=== PATIENT | female | born 1970 | race Hispanic/Latino ===

== ENCOUNTER → 2017-02-28 | Outpatient (CLI) | payer MEDICARE ==
[~2017-02-28] MED LIST: BUPR-47 PO; CHOL500050 PO; DEXT1CAP3 PO; FIBER THERAPY PO; HYDR100C2 PO; LISI40TA4 PO; METF500T6 PO; OXCA600T10 PO; OXYB5TAB10 PO; THYR30TA2 PO; ZIPR80CA21 PO
== END | disposition home or self-care (01) ==
LOC: SHCH 08:55
PROVIDERS: ATTEND Internal Medicine Cardiovascular Disease
DX: R07.9 Chest pain, unspecified (principal); R06.00 Dyspnea, unspecified
CPT/HCPCS: 93306

== ENCOUNTER → 2017-04-10 | Outpatient (CLI) | payer MEDICARE ==
[~2017-04-10] MED LIST changes: +REGADENOSON 0.4 MG/5 ML PF SYG IVP SCH
== END | disposition home or self-care (01) ==
LOC: SHCH 14:13
PROVIDERS: ATTEND Internal Medicine Cardiovascular Disease
DX: R07.9 Chest pain, unspecified (principal); R06.00 Dyspnea, unspecified
CPT/HCPCS: 78452; 93017; 96374; A9500 ×2; J2785

== ENCOUNTER 2018-07-26 08:50 | Emergency (ER) | payer MEDICARE ==
[~2018-07-26 08:50] MED LIST changes: +METF-444 PO; -METF500T6 PO; -OXCA600T10 PO; +OXCA600T18 PO; -REGADENOSON 0.4 MG/5 ML PF SYG IVP SCH
[2018-07-26 09:23] LABS: HCG,QUAL RESULT NEGATIVE (NEGATIVE)
[2018-07-26 09:24] LABS: APPEARANCE,URINE Clear (CLEAR); BILIRUBIN,URINE Negative (NEGATIVE); COLOR,URINE Yellow (YELLOW); GLUCOSE, URINE (UA) Negative (NEGATIVE); KETONES,URINE Negative (NEGATIVE); LEUKOCYTE ESTERASE ,URINE Small (NEGATIVE); NITRATE,URINE Negative (NEGATIVE); OCCULT BLOOD,URINE Negative (NEGATIVE); PROTEIN,URINE Negative (NEGATIVE); UROBILINOGEN,URINE 0.2 mg/dL (0.2-1.0)
[2018-07-26] MEDS ORDERED: SODIUM CHLORIDE 0.9% 1000ML 1,000 ML IV ONE (09:28)
[2018-07-26] MEDS ORDERED: KETOROLAC TROMETHAMINE 30MG/ML ONE (09:28)
[2018-07-26 09:32] LABS: BASOPHILS % (AUTO) 0.7 % (0.0-5.0); EOSINOPHILS % (AUTO) 1.6 % (0.0-8.0); HEMATOCRIT 40.2 % (36-48); LYMPHOCYTES % (AUTO) 10.5 % (21.0-51.0); MEAN CORPUSCULAR HEMOGLOBIN 28.6 pg (27.0-33.0); MEAN CORPUSCULAR HGB CONC 33.1 g/dL (32.0-36.0); MEAN CORPUSCULAR VOLUME 86.4 fL (79-99); MONOCYTES % (AUTO) 6.5 % (3.0-13.0); NEUTROPHILS % (AUTO) 80.7 % (40.0-77.0); PLATELET COUNT (AUTO) 316 K/uL (130-400); RED BLOOD CELL COUNT(AUTO) 4.65 MIL/uL (4.00-5.50); RED CELL DISTRIBUTION WIDTH 18.3 % (11.0-15.5); WHITE BLOOD COUNT (AUTO) 11.8 K/uL (4.8-10.8)
[2018-07-26 09:38] LABS: CREATININE 0.7 mg/dL (0.5-1.5); POTASSIUM 4.1 mmol/L (3.5-5.1)
[2018-07-26 09:42] LABS: BACTERIA,URINE Rare /HPF (None Seen); RBC,URINE 0-1 /HPF (0-1); SQUAMOUS EPITHELIAL CELL,UR Few /HPF (0-2)
[2018-07-26 09:47] LABS: ALBUMIN 3.7 g/dL (3.5-5.0); BILIRUBIN,TOTAL 0.3 mg/dL (0.2-1.0); TOTAL PROTEIN, SERUM 7.4 g/dL (6.0-8.3)
[2018-07-26] MEDS ORDERED: IOHEXOL-350 75 ML VIAL IV ONE (10:41)
== END 2018-07-26 11:36 | disposition home or self-care (01) ==
LOC: EDH 08:50
DX: N30.00 Acute cystitis without hematuria (principal); E11.9 Type 2 diabetes mellitus without complications; F31.9 Bipolar disorder, unspecified; F41.9 Anxiety disorder, unspecified; Z98.51 Tubal ligation status; Z79.899 Other long term (current) drug therapy; Z79.84 Long term (current) use of oral hypoglycemic drugs
CPT/HCPCS: 36415; 74177; 80053; 81001; 81025; 85025; 96374; 99285; J1885; J7030; Q9967

== ENCOUNTER 2018-09-17 16:30 | Observation (INO) | payer MEDICARE ==
[~2018-09-17] VITALS: Ht 157.5 cm; Wt 94.9 kg
[2018-09-17] MEDS ORDERED: ONDANSETRON HCL 4 MG/2 ML VIAL ONE (17:21)
[2018-09-17] MEDS ORDERED: TETANUS/DIPHTHERIA TOXOID [ADULT] 0.5 ML VIAL IM ONE ×2 (17:22→18:53)
[2018-09-17] MEDS ORDERED: SODIUM CHLORIDE 0.9% 1000ML 1,000 ML IV ONE ×2 (17:22→21:11)
[2018-09-17] MEDS ORDERED: HYDROMORPHONE 1 MG/1 ML AMP ONE (17:22)
[2018-09-17 17:27] LABS: APPEARANCE,URINE SL CLOUDY (CLEAR); BILIRUBIN,URINE MODERATE (NEGATIVE); COLOR,URINE YELLOW (YELLOW); GLUCOSE, URINE (UA) NEGATIVE (NEGATIVE); KETONES,URINE 15 mg/dL (NEGATIVE); LEUKOCYTE ESTERASE ,URINE TRACE (NEGATIVE); NITRATE,URINE NEGATIVE (NEGATIVE); OCCULT BLOOD,URINE NEGATIVE (NEGATIVE); PROTEIN,URINE 100 mg/dL (NEGATIVE)
[2018-09-17 17:29] LABS: BASOPHILS % (AUTO) 0.3 % (0.0-5.0); HEMATOCRIT 42.4 % (36-48); LYMPHOCYTES % (AUTO) 11.4 % (21.0-51.0); MEAN CORPUSCULAR HEMOGLOBIN 30.6 pg (27.0-33.0); MEAN CORPUSCULAR HGB CONC 34.1 g/dL (32.0-36.0); MEAN CORPUSCULAR VOLUME 89.8 fL (79-99); MONOCYTES % (AUTO) 8.9 % (3.0-13.0); NEUTROPHILS % (AUTO) 79.4 % (40.0-77.0); PLATELET COUNT (AUTO) 344 K/uL (130-400); RED BLOOD CELL COUNT(AUTO) 4.72 MIL/uL (4.00-5.50); RED CELL DISTRIBUTION WIDTH 14.1 % (11.0-15.5)
[2018-09-17] MEDS ORDERED: IOHEXOL-350 75 ML VIAL IV ONE (17:31)
[2018-09-17 17:35] LABS: AMPHET/METH SCREEN,URINE NEGATIVE (NEGATIVE); BARBITURATE SCREEN, URINE NEGATIVE (NEGATIVE); BENZODIAZEPINES SCREEN,URINE NEGATIVE (NEGATIVE); CANNABINOID SCREEN,URINE POSITIVE (NEGATIVE); COCAINE SCREEN,URINE POSITIVE (NEGATIVE); OPIATE SCREEN,URINE NEGATIVE (NEGATIVE); PHENCYCLIDINE SCREEN,URINE NEGATIVE (NEGATIVE)
[2018-09-17 17:42] LABS: BACTERIA,URINE Few /HPF (None Seen); MUCUS,URINE Rare LPF (None Seen); RBC,URINE 0-1 /HPF (0-1); SQUAMOUS EPITHELIAL CELL,UR Few /HPF (0-2)
[2018-09-17 17:47] LABS: CARBON DIOXIDE 19 mmol/L (21-32); CHLORIDE 103 mmol/L (101-111); CREATININE 0.9 mg/dL (0.5-1.5); GLOMERULAR FILTR. RATE CALC 71 mL/min (>60); GLUCOSE,RANDOM 116 mg/dL (70-105); POTASSIUM 3.2 mmol/L (3.5-5.1); SODIUM SERUM 142 mmol/L (136-145); UREA NITROGEN, BLOOD 11 mg/dL (7-18)
[2018-09-17 17:48] LABS: INR 0.97 (0.85-1.15); PARTIAL THROMBOPLASTIN TIME 27.1 SEC (26.3-35.5); PROTHROMBIN TIME 10.2 SEC (9.6-11.6)
[2018-09-17 17:51] LABS: ALANINE AMINOTRANSFERASE 29 U/L (12-78); ALBUMIN 3.9 g/dL (3.5-5.0); ASPARTATE AMINOTRANSFERASE 23 U/L (10-37); BILIRUBIN,TOTAL 0.6 mg/dL (0.2-1.0); TOTAL PROTEIN, SERUM 7.6 g/dL (6.0-8.3)
[2018-09-17 17:52] LABS: ALCOHOL, BLOOD < 3 mg/dL (0-10)
[2018-09-17] MEDS ORDERED: POTASSIUM CHLORIDE 20 MEQ ERTAB PO ONE (18:46)
[2018-09-17] MEDS ORDERED: CEFTRIAXONE SODIUM 1 GM ONE (18:47)
[2018-09-17] MEDS ORDERED: LEVOFLOXACIN 500 MG/D5W 100 ML 100 ML ONE (19:46)
[2018-09-17] MEDS ORDERED: ACETAMINOPHEN 325 MG TAB ONE (23:11)
[2018-09-18 01:45] VITALS: BP 113/68
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
[2018-09-18] MEDS ORDERED: CHOL500051 PO (02:08)
[2018-09-18] MEDS ORDERED: LISI40TA4 PO (02:08)
[2018-09-18] MEDS ORDERED: PREG100C PO (02:08)
[2018-09-18] MEDS ORDERED: FLUO20CA30 PO (02:08)
[2018-09-18] MEDS ORDERED: METF-444 PO (02:08)
[2018-09-18] MEDS ORDERED: ATOR10 PO (02:08)
[2018-09-18] MEDS ORDERED: ZIPR40CA2 PO (02:08)
[2018-09-18] MEDS ORDERED: TRAM50TA4 PO (02:08)
[2018-09-18] MEDS ORDERED: FERR-82 PO (02:08)
[2018-09-18] MEDS ORDERED: LORA10CA9 PO (02:08)
[2018-09-18] MEDS ORDERED: LEVO50 PO (02:08)
[2018-09-18] MEDS ORDERED: TRAZ-185 PO (02:08)
[2018-09-18] MEDS ORDERED: DOXE75CA3 PO (02:08)
[2018-09-18] MEDS ORDERED: DIVA500T69 PO (02:08)
[2018-09-18] MEDS ORDERED: METF500S7 PO (02:08)
[2018-09-18 03:51] VITALS: BP 113/64
[2018-09-18 05:05] LABS: HEMATOCRIT 37.2 % (36-48); MEAN CORPUSCULAR HEMOGLOBIN 30.8 pg (27.0-33.0); MEAN CORPUSCULAR HGB CONC 33.9 g/dL (32.0-36.0); MEAN CORPUSCULAR VOLUME 90.9 fL (79-99); NUCLEATED RED BLOOD CELLS 0.1 % (0.0-0.19); PLATELET COUNT (AUTO) 299 K/uL (130-400); RED BLOOD CELL COUNT(AUTO) 4.09 MIL/uL (4.00-5.50); RED CELL DISTRIBUTION WIDTH 14.7 % (11.0-15.5); WHITE BLOOD COUNT (AUTO) 7.6 K/uL (4.8-10.8)
[2018-09-18 05:21] LABS: CREATININE 0.7 mg/dL (0.5-1.5); POTASSIUM 3.1 mmol/L (3.5-5.1)
[2018-09-18] MEDS ORDERED: SODIUM CHLORIDE 0.9% 1000ML 1,000 ML IV SCH ×2 (06:30)
[2018-09-18] MEDS ORDERED: ACETAMINOPHEN 325 MG TAB PO PRN ×2 (06:30)
[2018-09-18 07:00] VITALS: BP 119/63
[2018-09-18 11:00] VITALS: BP 126/78
[2018-09-18] MEDS ORDERED: TRAMADOL HCL 50 MG TABLET PO PRN (11:00)
[2018-09-18] MEDS ORDERED: LORAZEPAM 0.5 MG TABLET PO SCH (11:15)
[2018-09-18] MEDS ORDERED: PREGABALIN 100 MG CAPSULE PO SCH (14:00)
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
[2018-09-18] MEDS ORDERED: NITR100C PO (15:46)
[2018-09-18 16:00] VITALS: BP 111/59
[2018-09-18] MEDS ORDERED: CEFTRIAXONE SODIUM 1 GM IVP SCH (18:00)
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
[2018-09-18] MEDS ORDERED: ZIPRASIDONE HCL 20 MG CAPSULE PO SCH (21:00)
[2018-09-18] MEDS ORDERED: TRAZODONE HCL 50 MG TAB PO SCH (21:00)
[2018-09-18] MEDS ORDERED: FERROUS SULFATE 325 MG TABLET.DR PO SCH (21:00)
[2018-09-18] MEDS ORDERED: DOXEPIN HCL 25 MG CAP PO SCH (21:00)
[2018-09-18] MEDS ORDERED: DIVALPROEX SODIUM 250 MG TABLET.DR PO SCH (21:00)
[2018-09-18] MEDS ORDERED: METFORMIN HCL 500 MG TABLET PO SCH (21:00)
[2018-09-18] MEDS ORDERED: ATORVASTATIN CALCIUM 10 MG TABLET PO SCH (21:00)
[2018-09-19] MEDS ORDERED: LEVOTHYROXINE 50 MCG TABLET PO SCH (07:30)
[2018-09-19] MEDS ORDERED: LORATADINE 10 MG TABLET PO SCH (09:00)
[2018-09-19] MEDS ORDERED: FLUOXETINE HCL 20 MG CAPSULE PO SCH (09:00)
[2018-09-19] MEDS ORDERED: LISINOPRIL 40 MG TABLET PO SCH (09:00)
[2018-09-25] MEDS ORDERED: **HM** VIT D3 5000 UNITS PO SCH (09:00)
== END 2018-09-18 18:45 | disposition home or self-care (01) ==
LOC: EDH 16:30 → EDHIP 18:46 → 3AH 09-18 01:53
PROVIDERS: ADMIT Internal Medicine; ATTEND Internal Medicine
DX: N39.0 Urinary tract infection, site not specified (principal); E03.9 Hypothyroidism, unspecified; E66.9 Obesity, unspecified; I10 Essential (primary) hypertension; F41.9 Anxiety disorder, unspecified; F31.9 Bipolar disorder, unspecified; T14.8XXA Other injury of unspecified body region, initial encounter; Y08.89XA Assault by other specified means, initial encounter; Y93.89 Activity, other specified; Y92.89 Other specified places as the place of occurrence of the external cause; Y99.8 Other external cause status; E11.9 Type 2 diabetes mellitus without complications; Z79.899 Other long term (current) drug therapy
CPT/HCPCS: 36415 ×2; 70450; 71045; 71260; 72125; 74160; 80048; 80053; 80305; 81001; 83605; 84439; 84443; 85025; 85027; 85610; 85730; 87040 ×2; 87088; 90471; 90714; 93005; 99284; G0378 ×24; G0480; J0696; J1170; J1956; J2405; J7030 ×2; Q9967

== ENCOUNTER → 2020-10-28 | Outpatient (CLI) | payer MEDICARE ==
[~2020-10-28] MED LIST changes: +ATOR10 PO; -BUPR-47 PO; -CHOL500050 PO; +CHOL500051 PO; -DEXT1CAP3 PO; +DIVA500T69 PO; +DOXE75CA3 PO; +FERR-82 PO; -FIBER THERAPY PO; +FLUO20CA30 PO; -HYDR100C2 PO; +IOHEXOL-350 50ML VIAL IV ONE; +LEVO50 PO; -LISI40TA4 PO; +LISI40TA9 PO; +LORA10CA9 PO; +NITR100C PO; -OXCA600T18 PO; -OXYB5TAB10 PO; +PREG100C PO; -THYR30TA2 PO; +TRAM50TA4 PO; +TRAZ-185 PO; +ZIPR40CA2 PO; -ZIPR80CA21 PO
== END | disposition home or self-care (01) ==
LOC: RAH 07:30
PROVIDERS: ATTEND Internal Medicine Gastroenterology
DX: K44.9 Diaphragmatic hernia without obstruction or gangrene (principal); K42.9 Umbilical hernia without obstruction or gangrene; N20.0 Calculus of kidney; N28.1 Cyst of kidney, acquired; N32.89 Other specified disorders of bladder; Z90.49 Acquired absence of other specified parts of digestive tract
CPT/HCPCS: 74178; Q9967

== ENCOUNTER 2020-12-08 05:30 | Day surgery (SDC) | payer MEDICARE ==
[2020-12-07 12:21] LABS: HEMATOCRIT 42.2 % (36-48); MEAN CORPUSCULAR HEMOGLOBIN 31.4 pg (27.0-33.0); MEAN CORPUSCULAR HGB CONC 32.2 g/dL (32.0-36.0); MEAN CORPUSCULAR VOLUME 97.5 fL (79-99); PLATELET COUNT (AUTO) 326 K/uL (130-400); RED BLOOD CELL COUNT(AUTO) 4.33 MIL/uL (4.00-5.50); RED CELL DISTRIBUTION WIDTH 13.9 % (11.0-15.5)
[2020-12-07 13:07] LABS: BASOPHILS % (MANUAL) 1 % (0-2); EOSINOPHILS % (MANUAL) 3 % (1-6); LYMPHOCYTES % (MANUAL) 25 % (22-44); MAN.DIFF COMMENT-IMPRESSION MANUAL DIFFERENTIAL; MONOCYTES % (MANUAL) 3 % (2-9); PLATELET MORPHOLOGY COMMENT ADEQUATE; REACTIVE LYMPHOCYTES 1 % (0-0); SEGMENTED NEUTROPHILS % 67 % (40-70)
[2020-12-07 13:10] LABS: CREATININE 0.8 mg/dL (0.5-1.5); POTASSIUM 3.7 mmol/L (3.5-5.1)
[~2020-12-08] VITALS: Ht 154.9 cm; Wt 92.8 kg
[2020-12-08] VITALS (17 sets, daily range): BP systolic 131–149; BP diastolic 69–88
[~2020-12-08 05:30] MED LIST changes: -IOHEXOL-350 50ML VIAL IV ONE; +LEVO100C4 PO; -LEVO50 PO; -LORA10CA9 PO; -METF-444 PO; +METF-446 PO; +MONT-39 PO; -NITR100C PO; -TRAM50TA4 PO; -TRAZ-185 PO
[2020-12-08] MEDS ORDERED: LACTATED RINGERS 1000ML 1,000 ML IV ONE (06:06)
[2020-12-08] MEDS ORDERED: ACETIC ACID 0.25% 1,000 ML IRRIG.SOLN ONE (06:17)
[2020-12-08] MEDS ORDERED: STRONG IODINE SOLN 14ML BOTTLE ONE ×2 (06:17→07:13)
[2020-12-08] MEDS ORDERED: LIDOCAINE PF 100MG/5ML (2%) SYRINGE 5ML ONE (06:56)
[2020-12-08] MEDS ORDERED: PROPOFOL 10 MG/ML 20ML VIAL IV ONE (06:56)
[2020-12-08] MEDS ORDERED: SUCCINYLCHOLINE 200MG/10ML SYR ONE (06:56)
[2020-12-08] MEDS ORDERED: DEXAMETHASONE SOD PHOSPHATE 10MG/ML 1ML VIAL ONE (06:56)
[2020-12-08] MEDS ORDERED: MIDAZOLAM HCL 1 MG/ML 2ML VIAL ONE (06:56)
[2020-12-08] MEDS ORDERED: MEPERIDINE-PF 25 MG/ML SYG ONE (06:57)
[2020-12-08] MEDS ORDERED: FENTANYL CITRATE PF 50 MCG/1 ML 2ML VIAL ONE (06:57)
[2020-12-08] MEDS ORDERED: ONDANSETRON 4MG INJ ONE (06:57)
== END 2020-12-08 09:45 | disposition home or self-care (01) ==
LOC: DAH 05:30
PROVIDERS: ATTEND Obstetrics & Gynecology
DX: N87.0 Mild cervical dysplasia (principal); Z20.822 Contact with and (suspected) exposure to COVID-19; N72 Inflammatory disease of cervix uteri; N88.8 Other specified noninflammatory disorders of cervix uteri; I10 Essential (primary) hypertension; E11.9 Type 2 diabetes mellitus without complications; G43.909 Migraine, unspecified, not intractable, without status migrainosus; F41.0 Panic disorder [episodic paroxysmal anxiety]; E66.01 Morbid (severe) obesity due to excess calories; F31.9 Bipolar disorder, unspecified; Z79.899 Other long term (current) drug therapy; Z90.49 Acquired absence of other specified parts of digestive tract; Z98.51 Tubal ligation status; Z98.890 Other specified postprocedural states; Z72.89 Other problems related to lifestyle; Z83.3 Family history of diabetes mellitus; Z68.37 Body mass index [BMI] 37.0-37.9, adult; Z79.84 Long term (current) use of oral hypoglycemic drugs
CPT/HCPCS: 36415; 57520; 80048; 82948 ×2; 85025; 86850; 86900; 86901; 87635; 88307; 88341; 88342; A4215; A4222; A4223 ×2; A4351; A4663; A4930; C9803; J0330; J1100; J2001; J2175; J2250; J2405; J2704; J3010; J7120

== ENCOUNTER 2021-10-02 19:35 | Emergency (ER) | payer MEDICARE ==
[~2021-10-02] VITALS: Ht 154.9 cm; Wt 88.9 kg
[2021-10-02 19:39] VITALS: BP 109/69
[2021-10-02] MEDS ORDERED: ACET-2079 PO (20:13)
[2021-10-02] MEDS ORDERED: IBUP-2070 PO (20:13)
[2021-10-02] MEDS ORDERED: IBUPROFEN 600 MG TABLET PO ONE (20:30)
[2021-10-02] MEDS ORDERED: HYDROCODONE/ACETAMINOPHEN 5/325 MG TAB PO ONE (20:30)
== END 2021-10-02 20:44 | disposition home or self-care (01) ==
LOC: EDH 19:35
DX: S93.402A Sprain of unspecified ligament of left ankle, initial encounter (principal); E11.9 Type 2 diabetes mellitus without complications; F41.9 Anxiety disorder, unspecified; Z79.1 Long term (current) use of non-steroidal anti-inflammatories (NSAID); Z79.84 Long term (current) use of oral hypoglycemic drugs; Z79.899 Other long term (current) drug therapy; Z90.49 Acquired absence of other specified parts of digestive tract; X58.XXXA Exposure to other specified factors, initial encounter; Y93.89 Activity, other specified; Y92.89 Other specified places as the place of occurrence of the external cause; Y99.8 Other external cause status
CPT/HCPCS: 73610

== ENCOUNTER → 2022-03-25 | Emergency (ER) | payer MEDICARE ==
[~2022-03-25] VITALS: Ht 154.9 cm; Wt 95.3 kg
[~2022-03-25] MED LIST changes: +ACET-2079 PO; +IBUP-2070 PO
[2022-03-25 15:23] VITALS: BP 147/93
== END ==
LOC: EDH 15:09
DX: R21 Rash and other nonspecific skin eruption (principal); Z53.21 Procedure and treatment not carried out due to patient leaving prior to being seen by health care provider

== ENCOUNTER 2023-03-07 04:37 | Emergency (ER) | payer MEDICARE ==
[~2023-03-07] VITALS: Ht 154.9 cm; Wt 94.8 kg
[2023-03-07 05:05] LABS: APPEARANCE,URINE CLEAR (CLEAR); BILIRUBIN,URINE NEGATIVE (NEGATIVE); COLOR,URINE YELLOW (YELLOW); GLUCOSE, URINE (UA) NEGATIVE (NEGATIVE); KETONES,URINE NEGATIVE (NEGATIVE); LEUKOCYTE ESTERASE ,URINE SMALL Leu/uL (NEGATIVE); NITRATE,URINE NEGATIVE (NEGATIVE); OCCULT BLOOD,URINE NEGATIVE (NEGATIVE); PH,URINE 6.5 (5.0-8.0); PROTEIN,URINE NEGATIVE (NEGATIVE); UROBILINOGEN,URINE 0.2 mg/dL (0.2-1.0)
[2023-03-07 05:09] LABS: ADD UA MICROSCOPIC YES
[2023-03-07 05:10] LABS: RBC,URINE 0-1 /HPF (0-1); SQUAMOUS EPITHELIAL CELL,UR FEW /HPF (0-2)
[2023-03-07 08:42] LABS: BASOPHILS # (AUTO) 0.06 K/uL (0.00-0.20); BASOPHILS % (AUTO) 0.6 % (0.0-5.0); EOSINOPHILS # (AUTO) 0.04 K/uL (0.00-0.70); EOSINOPHILS % (AUTO) 0.4 % (0.0-8.0); HEMATOCRIT 33.5 % (36-48); IMMATURE GRANULOCYTE ABSOLUTE 0.07 K/uL (0-1); LYMPHOCYTES # (AUTO) 2.1 K/uL (1.0-4.8); LYMPHOCYTES % (AUTO) 19.8 % (21.0-51.0); MEAN CORPUSCULAR HEMOGLOBIN 29.9 pg (27.0-33.0); MEAN CORPUSCULAR HGB CONC 33.4 g/dL (32.0-36.0); MEAN CORPUSCULAR VOLUME 89.6 fL (79-99); MONOCYTES # (AUTO) 1.2 K/uL (0.1-1.0); MONOCYTES % (AUTO) 11.3 % (3.0-13.0); NEUTROPHILS # (AUTO) 7.2 K/uL (1.8-7.7); NEUTROPHILS % (AUTO) 67.2 % (40.0-77.0); PLATELET COUNT (AUTO) 464 K/uL (130-400); RED BLOOD CELL COUNT(AUTO) 3.74 MIL/uL (4.00-5.50); RED CELL DISTRIBUTION WIDTH 13.8 % (11.0-15.5); WHITE BLOOD COUNT (AUTO) 10.7 K/uL (4.8-10.8)
[2023-03-07 08:51] LABS: CREATININE 0.6 mg/dL (0.5-1.5); POTASSIUM 3.7 mmol/L (3.5-5.1)
[2023-03-07 08:55] LABS: ALBUMIN 3.6 g/dL (3.5-5.0); BILIRUBIN,TOTAL 0.4 mg/dL (0.2-1.0); TOTAL PROTEIN, SERUM 6.4 g/dL (6.0-8.3)
[2023-03-07] MEDS ORDERED: KETOROLAC 60 MG VIAL (30MG/ML) IM ONE (09:00)
[2023-03-07] MEDS ORDERED: TRAMADOL HCL 50 MG TABLET PO ONE (09:00)
[2023-03-07] MEDS ORDERED: ORPHENADRINE CITRATE 30 MG/ML ML IM ONE (09:00)
[2023-03-07 09:38] LABS: APPEARANCE,URINE CLOUDY (CLEAR); BILIRUBIN,URINE NEGATIVE (NEGATIVE); COLOR,URINE YELLOW (YELLOW); GLUCOSE, URINE (UA) NEGATIVE (NEGATIVE); KETONES,URINE 5 mg/dL (NEGATIVE); LEUKOCYTE ESTERASE ,URINE 250 Leu/uL (NEGATIVE); NITRATE,URINE NEGATIVE (NEGATIVE); OCCULT BLOOD,URINE NEGATIVE (NEGATIVE); PH,URINE 6.5 (5.0-8.0); PROTEIN,URINE 70 mg/dL (NEGATIVE)
[2023-03-07 09:40] LABS: ADD UA MICROSCOPIC YES
[2023-03-07 09:44] LABS: BACTERIA,URINE FEW /HPF (None Seen); MUCUS,URINE FEW LPF (None Seen); NON-SQUAMOUS EPITHELIAL CELL 1 /HPF (0-2); RBC,URINE 0-1 /HPF (0-1); SQUAMOUS EPITHELIAL CELL,UR MOD /HPF (0-2)
[2023-03-07] MEDS ORDERED: TIZA-194 PO (10:30)
[2023-03-07 10:58] VITALS: BP 163/84; PULSE 84; RESP 18; O2SAT 100
== END 2023-03-07 10:58 | disposition home or self-care (01) ==
LOC: EDH 04:37
DX: G89.29 Other chronic pain (principal); M54.50 Low back pain, unspecified; E11.9 Type 2 diabetes mellitus without complications; E03.9 Hypothyroidism, unspecified; Z79.84 Long term (current) use of oral hypoglycemic drugs; Z79.890 Hormone replacement therapy; Z79.899 Other long term (current) drug therapy; Z90.49 Acquired absence of other specified parts of digestive tract; Z98.51 Tubal ligation status
CPT/HCPCS: 99285; 74176; 80053; 85025; 87088; 81001 ×2; 36415; 96372 ×2; J1885; J2360

== ENCOUNTER → 2023-10-10 | Outpatient (CLI) | payer MEDICARE ==
[~2023-10-10] MED LIST changes: +TIZA-194 PO
== END | disposition home or self-care (01) ==
LOC: RAH 08:49
PROVIDERS: ATTEND Internal Medicine
DX: K21.9 Gastro-esophageal reflux disease without esophagitis (principal); K44.9 Diaphragmatic hernia without obstruction or gangrene; R10.13 Epigastric pain
CPT/HCPCS: 74240